=== PATIENT | female | born 1980 | race Caucasian/White ===

== ENCOUNTER 2023-10-12 20:56 | Emergency (ER) | payer BC, OTHER, SELFPAY ==
[2023-10-12 21:01] VITALS: BP 187/104
[2023-10-12 22:03] VITALS: BP 140/87
--- NOTE | 2023-10-12 22:15 | ED.GENMED ---
History of Present Illness
<ALYSSA Shultz - Last Filed: 10/12/23 22:23>
General
Chief Complaint: Back Pain
Source: patient
Exam Limitations: none
Time Seen by Provider: 10/12/23 22:03
Nursing documentation reviewed up to this point in time: agreed with
Travel History
Have you had any contact with someone who has COVID-19?: No
Do you have any symptoms of coronavirus? Fever > 100 degrees, chills, cough, shortness of breath, sore throat, loss of taste or smell, muscle aches, or headache?: No
History of Present Illness
History of Present Illness:
patient is a 43 y/o female presenting with back pain x 3 days. Patient states that the pain is localized to her lower back B/L and radiates up her spine with movement. Patient states the pain is sharp and rates the pain a 10/10. Patient states pain
got worse today. Patient admits to associated nausea when pain shoots up spine. Patient denies V/D/C, SOB, HAMPTON, CP, fever, chills, dysuria, abdominal pain, weakness, dizziness, tingling. Patient denies any previous episodes, trauma or exercises to
the area, change in medication or diet. Patient admits to being a smoker and states she smoke 0.5 packs per day. Patient denies alcohol in the last 48 hrs. Patient states she started her menses today and denies any usual dysmenorrhea symptoms with
usual menses.
Past History
<ALYSSA Shultz - Last Filed: 10/12/23 22:23>
Past History
ED Past Medical History: Other (Gallstones, seizure disorder )
ED Past Surgical History: Cholecystectomy and Other (Patient has also had dental surgery )
Social History
Tobacco: Smoker
Alcohol: Occasional
Drug: None
Personal: Single
Living: with family
Employment: Not employed
Family History
Family History: Other (Laboratory disease, diabetes, coronary disease, cancer )
Review of Systems
<ALYSSA Shultz - Last Filed: 10/12/23 22:23>
Review of Systems
All Other Systems: Not applicable
Constitutional: Reports no symptoms
EENT: Reports no symptoms
Respiratory: Reports no symptoms
Cardiac: Reports no symptoms
ABD/GI: Reports nausea
: Reports no symptoms
Musculoskeletal: Reports back pain (B/L lower back )
Skin: Reports no symptoms
Neurological: Reports no symptoms
Endocrine: Reports no symptoms
Hematologic/Lymphatic: Reports no symptoms
Psychiatric: Reports no symptoms
Phy Exam
<ALYSSA Shultz - Last Filed: 10/12/23 22:23>
Musculoskeletal Exam
Musculoskeletal Exam: back pain (midline lumbar spine pain; paraspinal muscle tenderness ) and no edema
<Ambrosio Barraza DO - Last Filed: 10/13/23 03:19>
Physical Exam
Physical Exam:
Physical Exam
General: no apparent distress, not acutely ill
Neck: No jaundice
Heart: s1/s2 regular rate and rhythm, no murmur. equal radial pulses.
Lungs: no acute respiratory distress. clear bilaterally
Back: Reproducible spasm in the low lumbar region bilaterally
Neuro: alert and oriented. no focal neurological deficits painful straight leg raise bilaterally at 35 degrees
Skin: no rash
Psychiatric: well kept. interactive and cooperative
Extremities: no edema.
Course
<ALYSSA Shultz - Last Filed: 10/12/23 22:23>
Orders/Labs/Results
Orders:
Orders
10/12/23 22:32
Diazepam [Valium] 5 mg PO NOW STA
Ketorolac [Toradol] 60 mg IM NOW STA
10/12/23 22:33
Lumbar Spine, 2 or 3 View [CR Lumbar Spine 2 Or 3 Views] Urgent
Comment:
Reason For Exam: pain
10/12/23 23:14
Oxycodone/Acetaminophen [Percocet 5/325] 1 tablet PO NOW STA
10/13/23 00:23
Ondansetron Orally Disint [Zofran Odt (Orally Disintegrating)] 4 mg PO NOW STA
Vital Signs
Initial and Last Documented VS:
Initial Vital Signs
Temp Pulse Resp BP Pulse Ox
97.6 F 74 18 187/104 100
10/12/23 21:01 10/12/23 21:01 10/12/23 21:01 10/12/23 21:01 10/12/23 21:01
Last Documented Vital Signs
Temp Pulse Resp BP Pulse Ox
97.6 F 76 16 140/87 99
10/12/23 21:01 10/12/23 22:03 10/12/23 22:03 10/12/23 22:03 10/12/23 22:03
<Ambrosio Barraza, DO - Last Filed: 10/13/23 03:19>
Orders/Labs/Results
Orders:
Orders
10/12/23 22:32
Diazepam [Valium] 5 mg PO NOW STA
Ketorolac [Toradol] 60 mg IM NOW STA
10/12/23 22:33
Lumbar Spine, 2 or 3 View [CR Lumbar Spine 2 Or 3 Views] Urgent
Comment:
Reason For Exam: pain
10/12/23 23:14
Oxycodone/Acetaminophen [Percocet 5/325] 1 tablet PO NOW STA
10/13/23 00:23
Ondansetron Orally Disint [Zofran Odt (Orally Disintegrating)] 4 mg PO NOW STA
Vital Signs
Initial and Last Documented VS:
Initial Vital Signs
Temp Pulse Resp BP Pulse Ox
97.6 F 74 18 187/104 100
10/12/23 21:01 10/12/23 21:01 10/12/23 21:01 10/12/23 21:01 10/12/23 21:01
Last Documented Vital Signs
Temp Pulse Resp BP Pulse Ox
97.6 F 76 16 140/87 99
10/12/23 21:01 10/12/23 22:03 10/12/23 22:03 10/12/23 22:03 10/12/23 22:03
<ALYSSA Shultz - Last Filed: 10/12/23 22:23>
MDM/Problems Addressed
Differential Diagnosis Includes:
muscle strain
dysmenorrhea
vertebral fracture
MDM/Problems Addressed:
back pain
<ALYSSA Shultz - Last Filed: 10/12/23 22:23>
*Critical Care Note
Total Time (30-74mins, 75-104mins- exclusive of procedures): Not Applicable
<Ambrosio Barraza DO - Last Filed: 10/13/23 03:19>
Update Note
Update Note:
Update x-ray noted report noted
12:20 AM patient feeling bit more comfortable though she is nauseous she states she had to chew her medicines because she cannot swallow pills
Cocktail of she had previously when she was in for back pain worked although it made her very tired for few days
ED Attending Note
<ALYSSA Shultz - Last Filed: 10/12/23 22:23>
-
Portions of this chart may have been created with voice recognition software.� Occasional wrong word or��sound alike� substitutions may have occurred due to the inherent limitations of voice recognition software.
<Ambrosio Barraza DO - Last Filed: 10/13/23 03:19>
ED Attending Note
Patient seen and examined by attending physician: Yes
I performed the substantive portion of visit, reviewed & personally made and approve the management plan that is documented in note by myself or BRUCE.: Yes
ED Attending Note:
Seen with student examined independently 43-year-old female presents with low back pain for a few days worse with movement radiates to the bilateral buttock and legs also up into her back, point tender in her lumbar spine no fever no bowel or
bladder changes no saddle anesthesias no weight loss no weight gain use some topical remedies without any relief patient states she has had 1 prior episode of back pain prior records reviewed has had some similar complaints previously will check
x-ray, try to get her comfortable,
Discharge Plan
Departure
Patient Disposition: Home (Routine Discharge)
Date of Disposition: 10/13/23
Time of Disposition: 00:24
Patient with high blood pressure during this ER visit?: No
Condition: Good
Discharge Problem:
Back pain
Instructions: Low Back Pain (DC), Radiculopathy (DC)
Prescriptions:
New
ibuprofen 100 mg/5 mL suspension
400 mg PO Q6H PRN (Reason: Pain) Qty: 473 2RF
oxycodone 5 mg/5 mL solution
5 mg PO Q8H PRN (Reason: Pain) Qty: 100 0RF
No Action
diazepam 5 MG tablet
5 mg PO TIDPRN PRN (Reason: back spasm) Qty: 7 0RF
cyclobenzaprine 10 MG tablet
10 mg PO TIDPRN PRN (Reason: Pain, spasm) Qty: 12 0RF
meloxicam 7.5 MG tablet
7.5 mg PO BID Qty: 14 0RF
oxycodone-acetaminophen 5 MG/325 MG tablet
1 tab PO Q4HPRN PRN (Reason: pain) Qty: 7 0RF
Referrals:
Yordy Ontiveros, DO [Non-Admitting Privileges] - Next open appointment
NONE,* [Family Provider] -
Stand Alone Forms: Return to Work
Interventions
Interventions:
*Risk Screen - Suicide Last Done: 10/12/23 21:01
*General Assessment Last Done: 10/12/23 22:03
*Neglect/Abuse Screening Last Done: 10/12/23 21:01
ED- Fall Risk Assessment Last Done: 10/12/23 22:03
*ED COVID-19 Vaccine History Last Done: 10/12/23 22:03
*Nursing Disposition Last Done: 10/13/23 00:52
ED-Musculoskeletal Assessment Last Done: 10/12/23 22:03
Discharge Date and Time
Discharge Date/Time: 10/13/23 00:54
Print Language: GHANAIAN
[2023-10-12] MEDS: VALIUM 5 MG PO (22:37)
[2023-10-12] MEDS: TORADOL 60 MG IM (22:37)
[2023-10-12] MEDS: PERCOCET 5/325 1 TABLET PO (23:36)
[2023-10-13] MEDS: ZOFRAN ODT (ORALLY DISINTEGRATING) 4 MG PO (00:41)
== END 2023-10-13 00:54 | disposition home or self-care (01) ==
LOC: EMR 20:56
PROVIDERS: EMERGENCY PHYSICIAN Emergency Medicine
DX: M54.50 Low back pain, unspecified (principal); F17.210 Nicotine dependence, cigarettes, uncomplicated; Z82.49 Family history of ischemic heart disease and other diseases of the circulatory system; Z83.3 Family history of diabetes mellitus; Z90.49 Acquired absence of other specified parts of digestive tract
CPT/HCPCS: 99283; 96372; 72100

== ENCOUNTER 2024-01-20 19:37 | Emergency (ER) | payer BC, OTHER, SELFPAY ==
[2024-01-20 19:41] VITALS: BP 166/88
[2024-01-20 19:56] LABS: % Basophils 0.3 % (0-2); % Eosinophils 1.5 % (0-6); % Immature Granulocytes 0.4 % (0-0.5); % Lymphocytes 35.3 % (20.5-51.1); % Monocytes 4.9 % (1.7-9.3); % Neutrophils 57.6 % (42.2-75.2); Absolute Eosinophils 0.2 10^3/uL (0-0.7); Absolute Immature Granulocytes 0.1 10^3/uL (0-0.05); Absolute Lymphocytes 5.2 10^3/uL (1.2-3.4); Absolute Monocytes 0.7 10^3/uL (0.1-0.6); Absolute Neutrophils 8.5 10^3/uL (1.4-6.5); Hematocrit 40.3 % (37.0-47.0); Hemoglobin 14.2 g/dL (12.0-16.0); Mean Corp Hgb Conc. 35.2 g/dL (33.0-37.0); Mean Corpuscular Hgb 32.3 pg (27.0-31.0); Mean Corpuscular Volume 91.8 fL (81.0-99.0); Mean Platelet Volume 9.5 fL (7.4-10.4); Nucleated Red Blood Cells % 0 %; Platelet Count 310 10^3/uL (130-400); Red Blood Cell Count 4.39 10^6/uL (4.20-5.40); Red Cell Dist. Width 12.8 % (11.5-14.5); White Blood Cell Count 14.8 10^3/uL (4.8-10.8)
[2024-01-20 20:13] LABS: ALT (SGPT) 26 U/L (0-35); AST (SGOT) 24 U/L (14-36); Albumin 4.4 g/dl (3.5-5.0); Alkaline Phosphatase 60 U/L (38-126); Blood Urea Nitrogen 11 mg/dl (7-17); Calcium 9.6 mg/dl (8.4-10.2); Carbon Dioxide 24 mmol/L (22-30); Chloride 107 mmol/L (98-107); Glucose 107 mg/dl (70-99); Lipase 70 U/L (23-300); Potassium 4.2 mmol/L (3.5-5.1); Sodium 139 mmol/L (135-145); Total Bilirubin 0.4 mg/dl (0.2-1.3); eGFR > 60.00
--- NOTE | 2024-01-20 20:52 | ED.GENMED ---
History of Present Illness
General
Chief Complaint: Back Pain
Source: patient
Exam Limitations: none
Time Seen by Provider: 01/20/24 20:26
History of Present Illness
History of Present Illness:
This is a 43 year old female that comes in with c/o right lower back pain and abd pain. States that she was here before and had an X-ray of the low back. States that she was told that she has arthritis. States that she was given Medication and this
did not help. States that the pain is getting worse. States that for the past 2 days the pain has moved around to the abd. States that she feels nauseated with the pain and dizzy. Denies any falls or injury now of the first time when she was here.
Denies any fever, chills, chest pain, SOB, vomiting, diarrhea, headache, urinary burning.
Past History
Past History
ED Past Medical History: Seizures and Other (Gallstones, back pain, Arthritis of the spine)
ED Past Surgical History: Cholecystectomy and Other (Patient has also had dental surgery , Lipoma removed form back)
Social History
Tobacco: Smoker
Alcohol: Occasional
Drug: None
Personal: Other (Seperated)
Living: with family
Employment: Employed
Family History
Family History: Other (Laboratory disease, diabetes, coronary disease, cancer )
Review of Systems
Review of Systems
All Other Systems: ROS reviewed and negative except as documented in HPI and ROS
Constitutional: Reports no symptoms; Denies fever or chills
EENT: Reports no symptoms
Respiratory: Reports no symptoms; Denies cough or trouble breathing
Cardiac: Reports no symptoms; Denies chest pain
ABD/GI: Reports nausea; Denies abdominal pain, vomiting or diarrhea
: Reports no symptoms; Denies dysuria, frequency or urgency
Musculoskeletal: Reports back pain (Right low back pain)
Skin: Reports no symptoms
Neurological: Reports dizzy (only with pain); Denies headache
Psychiatric: Reports no symptoms
Phy Exam
General Physical Exam
General Presentation: mild distress
General age: appears stated age
General Skin: warm and dry
General Habitus: normal
General Mental: alert
General Hydration: appears well hydrated
ENT Exam
ENT Exam: TM's normal, pharynx normal and neck supple
Eye Exam
Eye Exam: EOMI
Cardiovascular Exam
Cardiovascular Exam: regular rate/rhythm, no edema, no murmur and normal peripheral pulses
Pulmonary Exam
Pulmonary Exam: lungs clear, no respiratory distress, no rales, no crackles, no rhonchi, no wheezing and no cough
Gastrointestinal Exam
Gastrointestinal Exam: normal bowel sounds, soft, no organomegaly, no pulsatile mass, non distended and tender (Right lower abd tenderness with palpation)
Musculoskeletal Exam
Musculoskeletal Exam: full ROM and back pain (c/o right back pain. Negative for spinal or right low back pain with palpation. Difficulty going up on her toes and discomfort when turning to the right sided. Can only bend forward about 30 degree's)
Skin Exam
Skin Exam: normal color, warm/dry, no rash and no petechia
Psychiatric Exam
Psychiatric Exam: normal mood/affect
Course
Orders/Labs/Results
Orders:
Orders
01/20/24 19:49
Comprehensive Metabolic Panel Urgent
HCG, Serum Qualitative Screen Urgent
Comment: ADD ON
Lipase Urgent
01/20/24 19:50
Complete Blood Count/With Diff Urgent
01/20/24 20:42
CT Abd/pelvis W Iv Cont Urgent
Comment:
Reason For Exam: Right lower abd pain.
Acetaminophen [Tylenol] 1,000 mg PO NOW STA
Ketorolac [Toradol] 30 mg IV NOW STA
01/20/24 20:57
Add On- LAB Urgent
Tests Added?: HCG
01/20/24 21:19
Urinalysis Reflex To Culture Urgent
Date Specimen was Collected: 01/20/24
Time Specimen was Collected: 21:16
Urine Microscopic Reflex Cult Urgent
Urine Culture Urgent
ROJAS Source: U
Specimen Description:
Date Specimen was Collected: 01/20/24
Time Specimen was Collected: 21:16
Abnormal Lab Results
01/20/24 01/20/24 01/20/24
19:49 19:50 21:19
WBC 14.8 H 10^3/uL
(4.8-10.8)
MCH 32.3 H pg
(27.0-31.0)
Abs Immat Gran (auto) 0.1 H 10^3/uL
(0-0.05)
Absolute Neuts (auto) 8.5 H 10^3/uL
(1.4-6.5)
Absolute Lymphs (auto) 5.2 H 10^3/uL
(1.2-3.4)
Absolute Monos (auto) 0.7 H 10^3/uL
(0.1-0.6)
Glucose 107 H mg/dl
(70-99)
Ur Occult Blood Reflex Trace A
(Negative)
Urine Bilirubin 1+ A
(Negative)
Urine Urobilinogen 2+ A
(Neg - 1+)
Leukocyte Esterase Rfl 2+ A
(Negative)
Urine Bacteria (Reflex) Few A
(Negative)
01/20/24 19:50
01/20/24 19:49
Leukocytosis, Glucose nonfasting. Lipase normal at 70
Vital Signs
Initial and Last Documented VS:
Initial Vital Signs
Temp Pulse Resp BP Pulse Ox
99.3 F 85 16 166/88 98
01/20/24 19:41 01/20/24 19:41 01/20/24 19:41 01/20/24 19:41 01/20/24 19:41
Last Documented Vital Signs
Temp Pulse Resp BP Pulse Ox
99.3 F 85 16 166/88 98
01/20/24 19:41 01/20/24 19:41 01/20/24 19:41 01/20/24 19:41 01/20/24 19:41
MDM/Problems Addressed
Differential Diagnosis Includes:
Appendicitis, Arthritis of the spine
MDM/Problems Addressed:
This is a 43 year old female that comes in with c/o right sided low back pain and not has pain in the right lower abd. States that this got worse over the past 2 days.
Will get labs. CT abd/pelvis, Urine, IV fluids and give pain medication.
Back into see patient. Reviewed CT scan. Will have patient use Tylenol 1000mg every 6 hours and Ibuprofen 600mg every 6hours with food. Will place on a steroid for the next 5 days. Will have patient follow up with the finance specialist for
further evaluation. Patient to return with any concerns.
Chronic conditions affecting care:
Back pain
Acute Exacerbation and/or Progression of Chronic Illness:
Back pain
*Radiology
Radiology exam reviewed: radiology read reviewed (CT-The appendix is normal. No acute inflammatory process within the abdomen or pelvis. No bowel obstrucation. No obstructive uropathy. Partial sacralization of L5 on the right. Incidental note is
made of a small stable protrusion at L4-5)
*Pulse Oximetry
Patient hypoxic: no
*EKG
Interpreted by ED Provider?: NA
Rate: EKG- N/A
*Pulverizer Interpretation
Rate: Pulverizer- N/A
*Critical Care Note
Total Time (30-74mins, 75-104mins- exclusive of procedures): Not Applicable
ED Attending Note
-
Portions of this chart may have been created with voice recognition software.� Occasional wrong word or��sound alike� substitutions may have occurred due to the inherent limitations of voice recognition software.
Discharge Plan
Departure
Patient Disposition: Home (Routine Discharge)
Date of Disposition: 01/20/24
Time of Disposition: 23:23
Patient with high blood pressure during this ER visit?: Yes
Condition: Good
Covid-19: Not Applicable
Discharge Problem:
Low back pain
Instructions: Low Back Pain (DC), BLOOD PRESSURE
Prescriptions:
New
prednisone 20 mg tablet
40 mg PO DAILY Qty: 10 0RF
No Action
diazepam 5 MG tablet
5 mg PO TIDPRN PRN (Reason: back spasm) Qty: 7 0RF
cyclobenzaprine 10 MG tablet
10 mg PO TIDPRN PRN (Reason: Pain, spasm) Qty: 12 0RF
meloxicam 7.5 MG tablet
7.5 mg PO BID Qty: 14 0RF
oxycodone-acetaminophen 5 MG/325 MG tablet
1 tab PO Q4HPRN PRN (Reason: pain) Qty: 7 0RF
ibuprofen 100 mg/5 mL suspension
400 mg PO Q6H PRN (Reason: Pain) Qty: 473 2RF
oxycodone 5 mg/5 mL solution
5 mg PO Q8H PRN (Reason: Pain) Qty: 100 0RF
Referrals:
Homer Beyer MD [Active] - Follow up in 2-3 days
NONE,* [Family Provider] -
Activity Restrictions/Additional Instructions:
As discussed, your blood work shows that your WBC are slightly elevated. Otherwise your blood work is normal. Your CT scan shows that there are protrusion of L4-5. This may be causing your pain. Please follow up with the finance specialist for
further evaluation. Please use Tylenol 1000mg every 6 hours for pain and alternate with Ibuprofen 600mg every 6 hours with food. You have also had a prescription for a steroid sent to your Pharmacy to help decrease the inflammation. You may use heat
or ice which ever make you feel better. IF YOU HAVE INCREASED OR CHANGING PAIN, OR YOU HAVE ANY OTHER CONCERNS PLEASE RETURN TO THE EMERGENCY ROOM.
Interventions
Interventions:
*General Assessment Last Done: 01/20/24 19:41
*ED COVID-19 Vaccine History Last Done: 01/20/24 19:41
Discharge Date and Time
Print Language: [place] LE[place]
[2024-01-20] MEDS: TORADOL 30 MG IV (21:10)
[2024-01-20] MEDS: TYLENOL 1000 MG PO (21:11)
[2024-01-20 21:25] LABS: Urine Albumin Trace (Neg - Trace); Urine Bilirubin 1+ (Negative); Urine Character Clear (Clear); Urine Color Yellow; Urine Glucose Negative (Negative); Urine Ketone Negative (Negative); Urine Leukocyte 2+ (Negative); Urine Nitrite Negative (Negative); Urine Occult Blood Trace (Negative); Urine Specific Gravity 1.015 (<1.030); Urine Urobilinogen 2+ (Neg - 1+)
[2024-01-20 21:39] LABS: Urine Squamous Cell >30 /LPF (Few)
[2024-01-20 21:40] LABS: Urine Bacteria Few (Negative); Urine Mucus Few; Urine Red Blood Cell 0-2 /HPF (0-2)
[2024-01-20 21:42] LABS: HCG, Serum Qualitative Screen Negative
[2024-01-20 23:32] VITALS: BP 127/77
[2024-01-20] MEDS: DECADRON IV (23:39)
[2024-01-20] MEDS: DECADRON 20 MG IV (23:40)
== END 2024-01-20 23:45 | disposition home or self-care (01) ==
LOC: EMR 19:37
PROVIDERS: Clinical Nurse Specialist Family Health; Emergency Medicine; EMERGENCY PHYSICIAN Emergency Medicine
DX: M54.50 Low back pain, unspecified (principal); R11.0 Nausea; R42 Dizziness and giddiness; R10.31 Right lower quadrant pain; M47.819 Spondylosis without myelopathy or radiculopathy, site unspecified; R56.9 Unspecified convulsions; R03.0 Elevated blood-pressure reading, without diagnosis of hypertension; M51.26 Other intervertebral disc displacement, lumbar region; F17.200 Nicotine dependence, unspecified, uncomplicated; Z90.49 Acquired absence of other specified parts of digestive tract; Z91.040 Latex allergy status; Z88.5 Allergy status to narcotic agent; Z91.048 Other nonmedicinal substance allergy status
CPT/HCPCS: 99285; 96375; 96374; 74177; 80053; 81003; 81015; 83690; 84703; 85025; 87086; Q9967